=== PATIENT | female | born 1980 ===

== ENCOUNTER 2018-02-18 23:11 | Emergency (ER) | payer OTHER ==
[2018-02-18 23:11] VITALS: BMI 33.4
[2018-02-18 23:22] VITALS: BP 113/62; PULSE 55; RESP 18; TEMP 97.3; O2SAT 100
[2018-02-18] MEDS ORDERED: Naproxen 500 MG TAB PO STA (23:38)
--- NOTE | 2018-02-18 23:41 | ED PDOC ---
HPI: Back Time Seen by Provider: 02/18/18 23:39 Chief Complaint (Nursing): Back Pain Chief Complaint (Provider): BACK PAIN History Per: Patient (37 Y/O FEMALE HERE WITH LEFT LOWER BACK PAIN WORSE WITH MOVEMENT X 3 DAYS. NOTES MILD DYSURIA. DENIES ANY HEMATURIA/URINARY FREQUENCY/ FEVERS/CHILLS/VOMITING/DIARRHEA.) Past Medical History Reviewed: Historical Data, Nursing Documentation, Vital Signs Vital Signs: Last Vital Signs Temp 97.3 F L 02/18/18 23:19 Pulse 55 L 02/18/18 23:19 Resp 18 02/18/18 23:19 BP 113/62 02/18/18 23:19 Pulse Ox 100 02/18/18 23:19 - Family History Family History: States: No Known Family Hx - Home Medications Home Medications: Ambulatory Orders Medication Instructions Recorded Ca/Cholecalciferol/Fe/Folic 1 1 tab PO DAILY 05/27/15 [Basic's Vitamins] Naproxen 1 tab PO Q12 PRN #14 tab 02/19/18 - Allergies Allergies/Adverse Reactions: Allergies Allergy/AdvReac Type Severity Reaction Status Date / Time No Known Allergies Allergy Verified 05/27/15 09:20 Review of Systems ROS Statement: Except As Marked, All Systems Reviewed And Found Negative Physical Exam - Reviewed Nursing Documentation Reviewed: Yes Vital Signs Reviewed: Yes - Physical Exam Appears: Positive for: Well, Non-toxic, No Acute Distress Head Exam: Positive for: ATRAUMATIC, NORMAL INSPECTION, NORMOCEPHALIC Skin: Positive for: Normal Color, Warm, DRY Eye Exam: Positive for: EOMI, Normal appearance, PERRL ENT: Positive for: Normal ENT Inspection Neck: Positive for: Normal, Painless ROM Cardiovascular/Chest: Positive for: Regular Rate, Rhythm Respiratory: Positive for: CNT, Normal Breath Sounds Gastrointestinal/Abdominal: Positive for: Normal Exam, Soft Back: Positive for: Normal Inspection, Other (LEFT PARALUMBAR TENDERNESS). Negative for: L CVA Tenderness Extremity: Positive for: Normal ROM Neurologic/Psych: Positive for: Alert, Oriented - Laboratory Results Urine POC: Negative Urine dip results: Positive for: Blood ([place]). Negative for: Leukocyte Esterase, Nitrate, Ketones, Glucose, Bilirubin, Protein - ECG O2 Sat by Pulse Oximetry: 100 Disposition - Clinical Impression Clinical Impression: Back strain - Patient ED Disposition Is Patient to be Admitted: No - Disposition Disposition: Routine/Home Disposition Time: 00:05 Condition: FAIR Prescriptions: Naproxen 1 tab PO Q12 PRN #14 tab PRN Reason: Pain, Moderate (4-7) Instructions: Low Back Pain (DC), Muscle Strain (DC) Forms: [employer] ([place]), [facility] ED School/Work Excuse
[2018-02-19] MEDS ORDERED: Naproxen 500 MG TAB PO ONE (00:04)
[2018-02-19 01:21] LABS: SQUAMOUS EPITHIAL < 1 /hpf (0-5); URINE BACTERIA RARE (<OCC); URINE BILIRUBIN NEGATIVE (NEGATIVE); URINE BLOOD SMALL (NEGATIVE); URINE CLARITY CLEAR (Clear); URINE COLOR COLORLESS (YELLOW); URINE GLUCOSE (UA) NEG (Normal); URINE LEUKOCYTE ESTERASE NEG Leu/uL (Negative); URINE PROTEIN NEGATIVE (NEGATIVE); URINE UROBILINOGEN 0.2-1.0 mg/dL (0.2-1.0)
== END 2018-02-19 00:40 | disposition home or self-care (01) ==
LOC: H.ER 23:11
DX: S39.012A Strain of muscle, fascia and tendon of lower back, initial encounter (principal)